=== PATIENT | male | born 1970 | race African-American/Black ===

== ENCOUNTER 2017-06-02 16:39 | Emergency (ER) | payer OTHER ==
[2017-06-02 16:47] VITALS: BP 144/80; PULSE 103; TEMP 98.4; BMI 33.0
--- NOTE | 2017-06-02 17:04 | PDOC ---
History of Present Illness - General Chief Complaint: Head/Neck problem Stated Complaint: RT NECK&HEAD PAIN Time Seen by Provider: 06/02/17 16:56 History Source: Patient Exam Limitations: No Limitations - History of Present Illness Initial Comments: CHIEF COMPLAINT: 47 y/o afebrile male with no significant PMH c/o right sided neck pain x 1 week. HISTORY OF PRESENT ILLNESS: The patient states he can no longer move his neck. He denies trauma to the neck, heavy lifting, muscle strain. He states one day it just started hurting and then became progressively worse. He saw his doctor today who prescribed medication but his insurance won't allow him to pick it up until tomorrow. He states he cannot take the pain. His is driving him home. Vital signs on arrival are notable for pulse of 103. REVIEW OF SYSTEMS: GENERAL/CONSTITUTIONAL: No fever/chills. No weakness. No weight change. HEAD, EYES, EARS, NOSE AND THROAT: No change in vision. No ear pain or discharge. No sore throat. CARDIOVASCULAR: No chest pain or shortness of breath. RESPIRATORY: No cough, wheezing, or hemoptysis. GASTROINTESTINAL: See history of present illness. GENITOURINARY: No dysuria, frequency, or change in urination. MUSCULOSKELETAL: No joint or muscle swelling or pain. No back pain. +right sided neck pain. SKIN: No rash or easy bruising. NEUROLOGIC: No headache, vertigo, loss of consciousness, or loss of sensation. PHYSICAL EXAM: GENERAL: The patient is awake, alert, and fully oriented, in no acute distress. He is pleasant, but holding his head straight ahead, turning his entire body to look from side to side. HEAD: Normal with no signs of trauma. NECK: Reproducible pain with palpation of right trapezius and SCM muscles. No midline cervical spine TTP or step offs. Patient cannot make lateral neck movements without pain. ENT: Pupils equal, round and reactive to light, extraocular movements intact, sclera anicteric, conjunctiva clear. LUNGS: Clear to auscultation bilaterally. Normal excursion. No respiratory distress or use of accessory muscles. CV: RRR, S1/S2, no MRG. Cap refill < 2 sec. ABDOMEN: Soft, non-distended, non-tender even to deep palpation, no hepatomegaly or splenomegaly, no masses. EXTREMITIES: Normal range of motion, no edema. NEUROLOGICAL: Normal speech, normal gait. CN II-XII grossly intact. PSYCH: Normal mood, normal affect. SKIN: Warm, dry, normal turgor, no rashes or lesions noted. Past History - Past Medical History Allergies/Adverse Reactions: Allergies Allergy/AdvReac Type Severity Reaction Status Date / Time No Known Allergies Allergy Verified 06/02/17 16:43 Home Medications: Ambulatory Orders NK [No Known Home Medication] 04/20/16 Anemia: No Asthma: No Cancer: No Cardiac Disorders: No CVA: No COPD: No CHF: No Dementia: No Diabetes: No GI Disorders: No Disorders: No HTN: No Hypercholesterolemia: No Kidney Stones: No Liver Disease: No Suicide Attempt (Hx): Yes Seizures: No Thyroid Disease: No Other medical history: DENIES. - Surgical History Appendectomy: Yes - Reproductive History Testicular Surgery: No - Immunization History Immunization Up to Date: Yes - Psycho/Social/Smoking Cessation Hx Anxiety: No Suicidal Ideation: No Smoking History: Current every day smoker Have you smoked in the past 12 months: Yes Number of Cigarettes Smoked Daily: 10 Information on smoking cessation initiated: No 'Breaking Loose' booklet given: 11/03/16 Hx Alcohol Use: Yes (OCCAS) Drug/Substance Use Hx: No Substance Use Type: Alcohol Hx Substance Use Treatment: No *Physical Exam - Vital Signs Last Vital Signs Temp Pulse Resp BP Pulse Ox 98.4 F 103 H 19 144/80 97 06/02/17 16:43 06/02/17 16:43 06/02/17 16:43 06/02/17 16:43 06/02/17 16:43 Medical Decision Making - Medical Decision Making A/P: 47 y/o afebrile male with torticollis. Plan is as follows: 1. IM toradol 2. PO valium. The patient will be discharged to home. His is driving him. He states he will pickup driver the pain medication his doctor prescribed to him tomorrow so he does not need any prescriptions. Instructed him to stretch his neck multiple times per day, use heat to help and return to the ER with any worsening or concerning symptoms. The patient verbalizes understanding of all instructions, has no further questions and is awaiting discharge. *DC/Admit/Observation/Transfer Diagnosis at time of Disposition: Torticollis, acute - Discharge Dispostion Disposition: HOME Condition at time of disposition: Improved - Referrals Referrals: Dionne Brito MD [Primary Care Provider] - - Patient Instructions Printed Discharge Instructions: DI for Torticollis Additional Instructions: Discharge Instructions: -Please pickup driver the prescriptions your doctor sent you tomorrow and start taking for pain -stretch your neck multiple times per day -Use heat to affected area to help with pain -Return to the ER with any worsening or concerning symptoms. - Post Discharge Activity Work/School Note: Back to Work
[2017-06-02] MEDS ORDERED: KETOROLAC TROMETHAMINE 60 MG/2 ML VIAL ONE (17:32)
[2017-06-02] MEDS ORDERED: diazePAM 5 MG TABLET ONE (17:32)
[2017-06-02] MEDS ORDERED: KETOROLAC TROMETHAMINE 60 MG/2 ML VIAL IM ONE (17:53)
[2017-06-02] MEDS ORDERED: diazePAM 5 MG TABLET PO ONE (17:53)
== END 2017-06-02 18:01 | disposition home or self-care (01) ==
LOC: JERFT 16:39
PROC: 3E0233Z Introduction of Anti-inflammatory into Muscle, Percutaneous Approach (ICD-10-PCS; principal; 2017-06-02)
DX: M43.6 Torticollis (principal); F17.210 Nicotine dependence, cigarettes, uncomplicated
CPT/HCPCS: 99281-25

== ENCOUNTER 2018-03-26 09:39 | Emergency (ER) | payer OTHER | END 2018-03-26 10:49 | disposition home or self-care (01) | LOC: JERFT 09:39 | DX: L03.011 Cellulitis of right finger (principal) | CPT/HCPCS: 99282-25 ==

== ENCOUNTER 2021-08-14 07:28 | Day surgery (SDC) | payer BC, OTHER ==
[2021-08-05 14:55] VITALS: BMI 35.2
[2021-08-14] MEDS ORDERED: MIDAZOLAM HCL 2 MG/2 ML SINGLE DOSE VIAL ONE ×2 (09:57→10:11)
[2021-08-14] MEDS ORDERED: PROPOFOL 20 ML ONE (09:58)
[2021-08-14] MEDS ORDERED: BUPIVACAINE HCL/PF 0.25% (2.5MG/ML) 10 ML VIAL ONE (10:03)
[2021-08-14] MEDS ORDERED: SUCCINYLCHOLINE CHLORIDE 200 MG/10 ML SYRINGE ONE (10:10)
[2021-08-14] MEDS ORDERED: ceFAZolin SODIUM 1 GM VIAL ONE ×2 (10:44)
[2021-08-14] MEDS ORDERED: oxyCODONE HCL 5 MG TABLET ONE (14:53)
[2021-08-14] MEDS ORDERED: oxyCODONE HCL 5 MG TABLET PO ONE (15:21)
[2021-08-14 15:56] VITALS: TEMP 97.9
[2021-08-14 16:03] VITALS: BP 131/74; PULSE 72
== END 2021-08-14 15:45 | disposition home or self-care (01) ==
LOC: FASU 07:28
PROVIDERS: ATTEND Orthopaedic Surgery Sports Medicine
PROC: 0SBC4ZZ Excision of Right Knee Joint, Percutaneous Endoscopic Approach (ICD-10-PCS; 2021-08-14)
PROC: 0SBC4ZZ Excision of Right Knee Joint, Percutaneous Endoscopic Approach (ICD-10-PCS; principal; 2021-08-14 10:57)
DX: S83.241A Other tear of medial meniscus, current injury, right knee, initial encounter (principal); M94.261 Chondromalacia, right knee; M65.9 Synovitis and tenosynovitis, unspecified; Y93.9 Activity, unspecified; Y92.9 Unspecified place or not applicable
CPT/HCPCS: 29881; G0289; 94760

== ENCOUNTER 2025-06-25 07:21 | Day surgery (SDC) | payer OTHER ==
[2025-06-20 13:50] VITALS: BMI 33.6
[2025-06-25] MEDS ORDERED: BUPIVACAINE HCL/PF 0.25% (2.5MG/ML) 10 ML VIAL ONE (11:22)
[2025-06-25] MEDS ORDERED: MIDAZOLAM HCL 2 MG/2 ML SINGLE DOSE VIAL ONE (11:31)
[2025-06-25] MEDS ORDERED: PROPOFOL 40 ML ONE (11:37)
[2025-06-25] MEDS ORDERED: ONDANSETRON 4 MG/2 ML VIAL ONE (11:37)
[2025-06-25] MEDS ORDERED: DEXAMETHASONE SOD PHOSPHATE 4 MG/1 ML VIAL ONE (11:37)
[2025-06-25] MEDS ORDERED: SEVOFLURANE 250 ML BTL ONE (11:59)
[2025-06-25] MEDS ORDERED: KETOROLAC TROMETHAMINE 30 MG/1 ML VIAL ONE (12:07)
[2025-06-25] MEDS ORDERED: ONDANSETRON 4 MG/2 ML VIAL IVPUSH PRN (12:38)
[2025-06-25] MEDS ORDERED: FENTANYL CITRATE/PF 50 MCG/ML VIAL ONE ×2 (12:44→12:57)
[2025-06-25] MEDS ORDERED: ACETAMINOPHEN INJECTION 100 ML ONE (12:44)
[2025-06-25] MEDS ORDERED: LACTATED RINGERS SOLUTION 1,000 ML IV SCH (12:45)
[2025-06-25] MEDS: ACETAMINOPHEN 1000 MG/100 ML BAG IVPB PRN (13:00)
[2025-06-25 13:51] VITALS: TEMP 97.3
[2025-06-25 14:54] VITALS: RESP 18
[2025-06-25 16:40] VITALS: BP 121/74; PULSE 64
== END 2025-06-25 16:30 | disposition home or self-care (01) ==
LOC: FASU 07:21
PROVIDERS: ATTEND Orthopaedic Surgery Sports Medicine
PROC: 0SBD4ZZ Excision of Left Knee Joint, Percutaneous Endoscopic Approach (ICD-10-PCS; 2025-06-25)
PROC: 0SBD4ZZ Excision of Left Knee Joint, Percutaneous Endoscopic Approach (ICD-10-PCS; 2025-06-25)
PROC: 0SBD4ZZ Excision of Left Knee Joint, Percutaneous Endoscopic Approach (ICD-10-PCS; 2025-06-25)
PROC: 0SBD4ZZ Excision of Left Knee Joint, Percutaneous Endoscopic Approach (ICD-10-PCS; principal; 2025-06-25 12:03)
DX: S83.242A Other tear of medial meniscus, current injury, left knee, initial encounter (principal); M94.262 Chondromalacia, left knee; M65.862 Other synovitis and tenosynovitis, left lower leg; X58.XXXA Exposure to other specified factors, initial encounter; Y92.9 Unspecified place or not applicable; Y93.9 Activity, unspecified
CPT/HCPCS: 94760